=== PATIENT | male | born 2000 | race Caucasian/White ===

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

== ENCOUNTER 2023-03-17 03:20 | Emergency (ER) | payer SELFPAY ==
[~2023-03-17] VITALS: Ht 170 cm; Wt 60.0 kg
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
== END 2023-03-17 07:30 | disposition expired ==
LOC: EDUNIT# 03:20 → ER 03:22
DX: S01.93XA Puncture wound without foreign body of unspecified part of head, initial encounter (principal); W34.00XA Accidental discharge from unspecified firearms or gun, initial encounter